=== PATIENT | female | born 1940 | race Caucasian/White ===

== ENCOUNTER 2019-04-21 13:59 | Inpatient (IN) ==
[2019-04-21] MEDS ORDERED: SODIUM CHLORIDE 0.9% 500 ML IV STA (14:44)
[2019-04-21 15:00] LABS: Basophils % 0.4 % (0.0-0.8); Eosinophils # 0.1 10*3/uL (0.0-0.87); Eosinophils % 1.3 % (0.00-10.9); Hematocrit 45.1 VOL% (35.7-47.0); Hemoglobin 13.7 GM/DL (12.0-16.0); Immature Granulocytes % 0.6 %; Immature Granulocytes Absolute 0.05 #; Lymphocytes % 11.8 % (21.3-54.2); Mean Corpuscular HGB Conc 30.4 GM/DL (32-36); Mean Corpuscular Volume 90.4 FL (87-102); Mean Platelet Volume 11.4 FL (9.6-12.0); Monocytes % 6.9 % (1.7-12.7); Platelet Count 182 T/CUMM (130-400); Red Blood Count 4.99 MC/CUMM (3.8-5.5); Red Cell Distribution Width 18.9 % (9.3-17.3); White Blood Count 8.4 T/CUMM (4-12)
[2019-04-21 15:18] LABS: Bilirubin,Total 1.6 MG/DL (0.2-1.0); Calcium 10.7 MG/DL (8.5-10.1); Osmolality,Calculated 277.8 MOS/KG (273-304)
[2019-04-21] MEDS ORDERED: SODIUM CHLORIDE 0.9% 1,000 ML IV STA (15:37)
[2019-04-21] MEDS ORDERED: ASPIRIN CHEW 81 MG TABLET PO STA (15:53)
[2019-04-21 16:23] LABS: Amorphous Crystals,Urine Occasional /HPF (Few); Apearance,Urine Slightly Hazy (Clear); Bacteria,Urine Moderate /HPF (Few); Bilirubin,Urine Negative (Negative); Blood, Urine Negative (Negative); Glucose,Urine (UA) Negative (Negative); Hyaline Casts,Urine 41 /LPF (0-3); Ketones,Urine Negative (Negative); Mucus,Urine Occasional /LPF (Occasional); Nitrite,Urine Positive (Negative); Protein,Urine 30 MG/DL; Squamous Epithelial Cell,Urine Occasional /HPF (0-10); Urine Color Yellow (Yellow); Urine Urobilinogen < 2.0 EU/DL (0.2-1.0); WBC,Urine 2 /HPF (0-6)
[2019-04-21] MEDS ORDERED: ONDANSETRON 4 MG/2 ML VIAL IV PRN (17:17)
[2019-04-21] MEDS ORDERED: MORPHINE 4 MG/1 ML VIAL IV PRN (17:17)
[2019-04-21] MEDS ORDERED: APIXABAN 5 MG TABLET PO SCH (21:00)
[2019-04-21] MEDS ORDERED: CLOPIDOGREL 300 MG TABLET PO ONE (22:28)
[2019-04-21] MEDS: SODIUM CHLORIDE 0.9% 1,000 ML IV SCH (22:44)
[2019-04-21] MEDS: metroNIDAZOLE INJ 500 MG in PREMIX 1 EACH IV SCH (22:51)
[2019-04-22] MEDS: ATORVASTATIN 10 MG TABLET PO SCH ×2 (00:26→23:00)
[2019-04-22] MEDS: SOTALOL 80 MG TABLET PO SCH ×3 (00:26→22:59)
[2019-04-22] MEDS: CEFEPIME 2,000 MG in SODIUM CHLORIDE 0.9% 100 ML IV SCH ×3 (00:40→14:47)
[2019-04-22 01:01] LABS: Basophils % 0.5 % (0.0-0.8); Eosinophils # 0.1 10*3/uL (0.0-0.87); Eosinophils % 1.5 % (0.00-10.9); Hematocrit 41.7 VOL% (35.7-47.0); Immature Granulocytes % 0.3 %; Immature Granulocytes Absolute 0.02 #; Lymphocytes # 1.6 10*3/uL (1.4-4.0); Lymphocytes % 26.8 % (21.3-54.2); Mean Corpuscular HGB Conc 31.2 GM/DL (32-36); Mean Corpuscular Volume 89.1 FL (87-102); Mean Platelet Volume 10.7 FL (9.6-12.0); Monocytes % 12.7 % (1.7-12.7); Neutrophils % 58.2 % (38.7-73.9); Platelet Count 153 T/CUMM (130-400); Red Blood Count 4.68 MC/CUMM (3.8-5.5); Red Cell Distribution Width 18.9 % (9.3-17.3); White Blood Count 5.8 T/CUMM (4-12)
[2019-04-22 01:40] LABS: Albumin 3.5 G/DL (3.4-5.0); Bilirubin,Total 1.1 MG/DL (0.2-1.0); Calcium 9.7 MG/DL (8.5-10.1); Osmolality,Calculated 269.2 MOS/KG (273-304); Thyroid Stimulating Hormone 3.39 uIU/ml (0.358-3.74); Total Protein 6.9 G/DL (6.4-8.3)
[2019-04-22] MEDS: SODIUM CHLORIDE 0.9% 1,000 ML IV SCH (02:41)
[2019-04-22] MEDS: LEVOTHYROXINE 50 MCG TABLET PO SCH (06:17)
[2019-04-22] MEDS: metroNIDAZOLE INJ 500 MG in PREMIX 1 EACH IV SCH ×3 (06:22→23:18)
[2019-04-22] MEDS ORDERED: diphenhydrAMINE CAP 25 MG CAPSULE PO ONE (08:36)
[2019-04-22] MEDS ORDERED: POTASSIUM CHLORIDE RIDER 10 MEQ in PREMIX 1 EACH IV PRN (08:36)
[2019-04-22] MEDS ORDERED: MAGNESIUM SULF RIDER 2 GM in PREMIX 1 EACH IV PRN (08:36)
[2019-04-22] MEDS ORDERED: ENOXAPARIN 80 MG/0.8 ML SYRINGE SUBCUT ONE (08:36)
[2019-04-22] MEDS ORDERED: HEPARIN/NACL 0.9% 2 UNITS/ML 1,000 ML IV ONE (08:42)
[2019-04-22] MEDS ORDERED: LIDOCAINE 1%/EPI INJ 20 ML VIAL ONE (08:42)
[2019-04-22] MEDS ORDERED: CLOPIDOGREL 75 MG TABLET PO SCH (09:00)
[2019-04-22] MEDS ORDERED: ASPIRIN EC 325 MG TABLET PO SCH (09:00)
[2019-04-22] MEDS ORDERED: MIDAZOLAM 2 MG/2 ML VIAL ONE (09:17)
[2019-04-22] MEDS ORDERED: fentaNYL 100 MCG/2 ML VIAL ONE (09:17)
[2019-04-22] MEDS ORDERED: DIAZEPAM 5 MG TABLET PO ONE (09:30)
[2019-04-22] MEDS: PANTOPRAZOLE 40 MG TABLET PO SCH (10:37)
[2019-04-22] MEDS ORDERED: ENOXAPARIN 60 MG/0.6 ML SYRINGE SUBCUT SCH (22:27)
[2019-04-22] MEDS: ENOXAPARIN 60 MG/0.6 ML SYRINGE SUBCUT SCH (23:19)
[2019-04-23] MEDS: CEFEPIME 2,000 MG in SODIUM CHLORIDE 0.9% 100 ML IV SCH ×3 (01:10→13:50)
[2019-04-23 05:29] LABS: Basophils % 0.5 % (0.0-0.8); Eosinophils # 0.2 10*3/uL (0.0-0.87); Eosinophils % 4.7 % (0.00-10.9); Hematocrit 35.3 VOL% (35.7-47.0); Immature Granulocytes % 0.2 %; Immature Granulocytes Absolute 0.01 #; Lymphocytes # 1.1 10*3/uL (1.4-4.0); Lymphocytes % 26.3 % (21.3-54.2); Mean Corpuscular HGB Conc 31.2 GM/DL (32-36); Mean Corpuscular Volume 88.9 FL (87-102); Mean Platelet Volume 10.8 FL (9.6-12.0); Monocytes % 12.3 % (1.7-12.7); Platelet Count 119 T/CUMM (130-400); Red Blood Count 3.97 MC/CUMM (3.8-5.5); Red Cell Distribution Width 18.6 % (9.3-17.3); White Blood Count 4.1 T/CUMM (4-12)
[2019-04-23 06:04] LABS: Albumin 3.1 G/DL (3.4-5.0); Bilirubin,Total 1.1 MG/DL (0.2-1.0); Calcium 9.3 MG/DL (8.5-10.1); Osmolality,Calculated 280.3 MOS/KG (273-304)
[2019-04-23 06:23] LABS: Calcium 9.6 MG/DL (8.5-10.1); Osmolality,Calculated 277.4 MOS/KG (273-304)
[2019-04-23] MEDS: LEVOTHYROXINE 50 MCG TABLET PO SCH (06:30)
[2019-04-23] MEDS: metroNIDAZOLE INJ 500 MG in PREMIX 1 EACH IV SCH ×2 (06:45→13:49)
[2019-04-23] MEDS: SOTALOL 80 MG TABLET PO SCH (08:52)
[2019-04-23] MEDS: PANTOPRAZOLE 40 MG TABLET PO SCH (08:53)
[2019-04-23] MEDS ORDERED: ASPIRIN EC 81 MG TABLET PO SCH (09:00)
[2019-04-23] MEDS: ENOXAPARIN 60 MG/0.6 ML SYRINGE SUBCUT SCH (11:15)
[2019-04-23 15:45] VITALS: BP 129/73
== END 2019-04-23 17:00 | disposition home or self-care (01) | DRG 287 ==
LOC: N.ED 13:59 → N.EDINP 17:17 → N.TELEN 20:42
PROVIDERS: ADMIT Family Medicine; ATTEND Family Medicine
PROC: CLCCHCL (ICD-10-PCS; 2019-04-22 10:45)

== ENCOUNTER 2022-03-05 19:21 | Inpatient (IN) ==
[2022-03-05] MEDS ORDERED: ONDANSETRON 4 MG/2 ML VIAL IV STA (21:19)
[2022-03-05] MEDS ORDERED: SODIUM CHLORIDE 0.9% 1,000 ML IV STA (21:19)
[2022-03-05 22:03] LABS: Basophils % 0.2 % (0.0-0.8); Eosinophils # 0.1 10*3/uL (0.0-0.87); Hematocrit 42.6 VOL% (35.7-47.0); Hemoglobin 13.7 GM/DL (12.0-16.0); Immature Granulocytes % 0.5 %; Immature Granulocytes Absolute 0.05 #; Lymphocytes % 9.7 % (21.3-54.2); Mean Corpuscular HGB Conc 32.2 GM/DL (32-36); Mean Corpuscular Volume 87.8 FL (87-102); Mean Platelet Volume 11.3 FL (9.6-12.0); Monocytes # 1.6 10*3/uL (0.11-0.8); Monocytes % 14.8 % (1.7-12.7); Neutrophils % 73.8 % (38.7-73.9); Platelet Count 201 T/CUMM (130-400); Red Blood Count 4.85 MC/CUMM (3.8-5.5); Red Cell Distribution Width 17.7 % (9.3-17.3); White Blood Count 10.5 T/CUMM (4-12)
[2022-03-05 22:28] LABS: Hypochromia 1+
[2022-03-05 22:29] LABS: Elliptocytes Few; Platelet Estimate Adequate
[2022-03-05 22:31] LABS: Albumin 4.1 G/DL (3.4-5.0); Bilirubin,Total 2.1 MG/DL (0.20-1.00); Calcium 6.5 MG/DL (8.5-10.1); Osmolality,Calculated 261.5 MOS/KG (273-304); Potassium 3.9 MMOL/L (3.5-5.1); Total Protein 7.3 G/DL (6.4-8.2)
[2022-03-05] MEDS ORDERED: FUROSEMIDE 40 MG/4 ML VIAL IV STA (22:50)
[2022-03-05] MEDS ORDERED: MAGNESIUM SULF RIDER 2 GM/50 ML PREMIX IV STA (22:50)
[2022-03-05] MEDS ORDERED: ACETAMINOPHEN 325 MG TABLET PO PRN (22:54)
[2022-03-05] MEDS ORDERED: ONDANSETRON 4 MG/2 ML VIAL IV PRN (22:54)
[2022-03-05] MEDS ORDERED: MAGNESIUM SULF RIDER 4 GM/100 ML PREMIX IV PRN (23:01)
[2022-03-05] MEDS ORDERED: POTASSIUM CHLORIDE 20 MEQ TABLET PO PRN (23:01)
[2022-03-05] MEDS ORDERED: MAGNESIUM SULF RIDER 2 GM/50 ML PREMIX IV PRN (23:01)
[2022-03-05 23:53] LABS: Glucose,Urine (UA) Negative (Negative); Ketones,Urine Negative (Negative); Nitrite,Urine Negative (Negative); Protein,Urine Negative (Negative); Squamous Epithelial Cell,Urine Occasional /HPF (0-10); Urine Appearance Clear (Clear); Urine Color Yellow (Yellow); Urine pH 6.5 (4.5-8.0)
[2022-03-05 23:54] LABS: Bilirubin,Urine Negative (Negative); Blood, Urine Moderate mg/dL (Negative); Urine Urobilinogen 0.2 eU/dL (<2.0)
[2022-03-06] MEDS ORDERED: NON-FORMULARY MEDICATION (Dimethicone-Znox-Vit A-D-Aloe [Zinc Oxide Diaper Cream] 1-10 % C TOP PRN (00:22)
[2022-03-06] MEDS ORDERED: HYDROCORTISONE 0.5% TOP PRN (00:22)
[2022-03-06] MEDS ORDERED: BISACODYL 5 MG TABLET PO PRN (00:22)
[2022-03-06] MEDS ORDERED: POLYETHYLENE GLYCOL POWDER 17 GM PACK PO PRN (00:28)
[2022-03-06] MEDS ORDERED: CLORAZEPATE 3.75 MG TABLET PO PRN (03:55)
[2022-03-06] MEDS: LEVOTHYROXINE 75 MCG TABLET PO SCH (06:03)
[2022-03-06 07:14] LABS: Basophils % 0.1 % (0.0-0.8); Eosinophils # 0.1 10*3/uL (0.0-0.87); Eosinophils % 1.3 % (0.00-10.9); Hematocrit 37.3 VOL% (35.7-47.0); Hemoglobin 12.2 GM/DL (12.0-16.0); Immature Granulocytes % 0.5 %; Immature Granulocytes Absolute 0.04 #; Lymphocytes # 0.8 10*3/uL (1.4-4.0); Lymphocytes % 9.5 % (21.3-54.2); Mean Corpuscular HGB Conc 32.7 GM/DL (32-36); Mean Corpuscular Volume 85.7 FL (87-102); Mean Platelet Volume 10.2 FL (9.6-12.0); Monocytes # 1.4 10*3/uL (0.11-0.8); Monocytes % 15.7 % (1.7-12.7); Neutrophils % 72.9 % (38.7-73.9); Platelet Count 160 T/CUMM (130-400); Red Blood Count 4.35 MC/CUMM (3.8-5.5); Red Cell Distribution Width 17.5 % (9.3-17.3); White Blood Count 8.8 T/CUMM (4-12)
[2022-03-06 07:32] LABS: Albumin 3.2 G/DL (3.4-5.0); Bilirubin,Total 1.8 MG/DL (0.20-1.00); Osmolality,Calculated 271.7 MOS/KG (273-304); Potassium 3.5 MMOL/L (3.5-5.1); Risk Ratio 2.98; Total Protein 5.8 G/DL (6.4-8.2); VLDL Cholesterol 17.2 MG/DL
[2022-03-06 07:34] LABS: Eosinophils 1 % (0-10); Hypochromia Slight; Lymphocytes 11 % (20-55); Microcytosis Slight; Platelet Estimate Adequate; Total Cells Counted 100
[2022-03-06 07:36] LABS: Calcium 5.6 MG/DL (8.5-10.1)
[2022-03-06] MEDS ORDERED: CALCIUM GLUCONATE RIDER 2,000 MG/100 ML PREMIX IV ONE ×2 (07:41→12:00)
[2022-03-06] MEDS ORDERED: CALCIUM GLUCONATE RIDER 2,000 MG/100 ML PREMIX IV STA (07:49)
[2022-03-06] MEDS ORDERED: FUROSEMIDE 20 MG/2 ML VIAL IV SCH (08:00)
[2022-03-06] MEDS: CALCIUM CARBONATE CHEW 500 MG TABLET PO SCH ×2 (08:29→20:55)
[2022-03-06] MEDS: CHOLECALCIFEROL 5,000 UNIT TABLET PO SCH (08:30)
[2022-03-06] MEDS: MULTIVITAMIN (OCUVITE) TABLET PO SCH (08:30)
[2022-03-06] MEDS: APIXABAN 5 MG TABLET PO SCH ×2 (08:30→20:55)
[2022-03-06] MEDS: CYANOCOBALAMIN 500 MCG TABLET PO SCH (08:30)
[2022-03-06] MEDS: SOTALOL 80 MG TABLET PO SCH ×2 (08:31→20:55)
[2022-03-06] MEDS: TRIAMCINOLONE 0.1% CREAM 15 GM TUBE TOP SCH ×2 (08:32→22:19)
[2022-03-06] MEDS: KETOCONAZOLE 2% CREAM 30 GM TUBE TOP SCH ×2 (08:32→22:20)
[2022-03-06] MEDS: FLUTICASONE 50 MCG NASAL SPRAY 16 GM BOTTLE BOTH NARES SCH (08:32)
[2022-03-06] MEDS ORDERED: DILTIAZEM CD 120 MG CAPSULE PO SCH (09:00)
[2022-03-06 11:13] LABS: Calcium 6.3 MG/DL (8.5-10.1); Osmolality,Calculated 267.1 MOS/KG (273-304); Potassium 3.5 MMOL/L (3.5-5.1)
[2022-03-06] MEDS ORDERED: POTASSIUM CHLORIDE 20 MEQ TABLET PO ONE ×2 (11:49→17:01)
[2022-03-06] MEDS ORDERED: MAGNESIUM SULF RIDER 2 GM/50 ML PREMIX IV ONE ×2 (12:30→13:00)
[2022-03-06 13:28] LABS: Osmolality,Calculated 264.5 MOS/KG (273-304); Potassium 3.5 MMOL/L (3.5-5.1)
[2022-03-06] MEDS: FUROSEMIDE 40 MG/4 ML VIAL IV SCH (15:37)
[2022-03-06 18:18] LABS: Calcium 6.5 MG/DL (8.5-10.1); Osmolality,Calculated 262.5 MOS/KG (273-304); Potassium 4.1 MMOL/L (3.5-5.1)
[2022-03-06] MEDS: ATORVASTATIN 10 MG TABLET PO SCH (20:55)
[2022-03-06] MEDS: ASCORBIC ACID 500 MG TABLET PO SCH (20:55)
[2022-03-06] MEDS: MAGNESIUM OXIDE 400 MG TABLET PO SCH (20:56)
[2022-03-07 04:52] LABS: Basophils % 0.1 % (0.0-0.8); Eosinophils # 0.1 10*3/uL (0.0-0.87); Eosinophils % 1.4 % (0.00-10.9); Hemoglobin 12.5 GM/DL (12.0-16.0); Immature Granulocytes % 0.5 %; Immature Granulocytes Absolute 0.05 #; Mean Corpuscular HGB Conc 32.9 GM/DL (32-36); Mean Corpuscular Volume 85.4 FL (87-102); Mean Platelet Volume 10.9 FL (9.6-12.0); Monocytes # 1.8 10*3/uL (0.11-0.8); Platelet Count 182 T/CUMM (130-400); Red Blood Count 4.45 MC/CUMM (3.8-5.5); Red Cell Distribution Width 17.7 % (9.3-17.3); White Blood Count 9.9 T/CUMM (4-12)
[2022-03-07 05:16] LABS: Eosinophils 1 % (0-10); Lymphocytes 7 % (20-55); Total Cells Counted 100
[2022-03-07 05:17] LABS: Hypochromia Slight; Microcytosis Slight; Platelet Estimate Adequate
[2022-03-07 05:21] LABS: Calcium 6.2 MG/DL (8.5-10.1); Osmolality,Calculated 266.2 MOS/KG (273-304); Potassium 4.1 MMOL/L (3.5-5.1)
[2022-03-07] MEDS: LEVOTHYROXINE 75 MCG TABLET PO SCH (05:30)
[2022-03-07] MEDS: SOTALOL 80 MG TABLET PO SCH ×2 (08:38→21:31)
[2022-03-07] MEDS: MAGNESIUM OXIDE 400 MG TABLET PO SCH ×3 (08:39→21:43)
[2022-03-07] MEDS: DILTIAZEM CD 120 MG CAPSULE PO SCH (08:39)
[2022-03-07] MEDS: MULTIVITAMIN (OCUVITE) TABLET PO SCH (08:39)
[2022-03-07] MEDS: CALCIUM CARBONATE CHEW 500 MG TABLET PO SCH ×2 (08:39→21:31)
[2022-03-07] MEDS: ASCORBIC ACID 500 MG TABLET PO SCH ×2 (08:39→21:31)
[2022-03-07] MEDS: APIXABAN 5 MG TABLET PO SCH ×2 (08:40→21:31)
[2022-03-07] MEDS: CHOLECALCIFEROL 5,000 UNIT TABLET PO SCH (08:40)
[2022-03-07] MEDS: CYANOCOBALAMIN 500 MCG TABLET PO SCH (08:40)
[2022-03-07] MEDS: FUROSEMIDE 40 MG/4 ML VIAL IV SCH ×2 (09:01→18:12)
[2022-03-07 10:52] LABS: Albumin 3.7 G/DL (3.4-5.0); Bilirubin,Total 2.1 MG/DL (0.20-1.00); Calcium 6.2 MG/DL (8.5-10.1); Osmolality,Calculated 261.7 MOS/KG (273-304); Potassium 4.7 MMOL/L (3.5-5.1); Total Protein 6.7 G/DL (6.4-8.2)
[2022-03-07] MEDS: FLUTICASONE 50 MCG NASAL SPRAY 16 GM BOTTLE BOTH NARES SCH (11:29)
[2022-03-07] MEDS: KETOCONAZOLE 2% CREAM 30 GM TUBE TOP SCH ×3 (11:29→21:43)
[2022-03-07] MEDS: TRIAMCINOLONE 0.1% CREAM 15 GM TUBE TOP SCH ×3 (11:29→21:43)
[2022-03-07] MEDS ORDERED: CALCIUM GLUCONATE RIDER 2,000 MG/100 ML PREMIX IV ONE (20:04)
[2022-03-07] MEDS: DOCUSATE SODIUM 100 MG CAPSULE PO SCH (21:30)
[2022-03-07] MEDS: ATORVASTATIN 10 MG TABLET PO SCH (21:32)
[2022-03-08 05:44] LABS: Basophils % 0.2 % (0.0-0.8); Eosinophils # 0.2 10*3/uL (0.0-0.87); Eosinophils % 2.3 % (0.00-10.9); Hematocrit 39.3 VOL% (35.7-47.0); Immature Granulocytes % 0.5 %; Immature Granulocytes Absolute 0.04 #; Lymphocytes # 1.4 10*3/uL (1.4-4.0); Lymphocytes % 16.1 % (21.3-54.2); Mean Corpuscular HGB Conc 33.1 GM/DL (32-36); Mean Corpuscular Volume 86.4 FL (87-102); Mean Platelet Volume 10.7 FL (9.6-12.0); Monocytes # 1.6 10*3/uL (0.11-0.8); Monocytes % 19.4 % (1.7-12.7); Neutrophils % 61.5 % (38.7-73.9); Platelet Count 158 T/CUMM (130-400); Red Blood Count 4.55 MC/CUMM (3.8-5.5); Red Cell Distribution Width 17.4 % (9.3-17.3); White Blood Count 8.4 T/CUMM (4-12)
[2022-03-08] MEDS: LEVOTHYROXINE 75 MCG TABLET PO SCH (05:51)
[2022-03-08 06:15] LABS: Band Neutrophils 1 % (0-10); Eosinophils 1 % (0-10); Lymphocytes 13 % (20-55); Microcytosis Slight; Total Cells Counted 100
[2022-03-08 06:16] LABS: Ovalocytes Slight; Platelet Estimate Adequate
[2022-03-08 06:23] LABS: Calcium 6.5 MG/DL (8.5-10.1); Osmolality,Calculated 264.5 MOS/KG (273-304); Potassium 3.7 MMOL/L (3.5-5.1)
[2022-03-08 07:46] LABS: Albumin 2.8 G/DL (3.4-5.0); Bilirubin,Direct 0.4 MG/DL (0.0-0.20); Bilirubin,Indirect 1.2 MG/DL (0.0-1.0); Bilirubin,Total 1.6 MG/DL (0.20-1.00); Total Protein 6.3 G/DL (6.4-8.2)
[2022-03-08] MEDS ORDERED: POTASSIUM CHLORIDE 20 MEQ TABLET PO ONE (07:46)
[2022-03-08] MEDS: MULTIVITAMIN (OCUVITE) TABLET PO SCH (08:41)
[2022-03-08] MEDS: APIXABAN 5 MG TABLET PO SCH ×2 (08:42→21:00)
[2022-03-08] MEDS: MAGNESIUM OXIDE 400 MG TABLET PO SCH ×2 (08:42→20:59)
[2022-03-08] MEDS: CHOLECALCIFEROL 5,000 UNIT TABLET PO SCH (08:42)
[2022-03-08] MEDS: CYANOCOBALAMIN 500 MCG TABLET PO SCH (08:42)
[2022-03-08] MEDS: ASCORBIC ACID 500 MG TABLET PO SCH ×2 (08:42→20:59)
[2022-03-08] MEDS: DOCUSATE SODIUM 100 MG CAPSULE PO SCH ×2 (08:42→20:59)
[2022-03-08] MEDS: TRIAMCINOLONE 0.1% CREAM 15 GM TUBE TOP SCH ×2 (08:43→21:00)
[2022-03-08] MEDS: FLUTICASONE 50 MCG NASAL SPRAY 16 GM BOTTLE BOTH NARES SCH (08:43)
[2022-03-08] MEDS ORDERED: CALCIUM GLUCONATE RIDER 2,000 MG/100 ML PREMIX IV ONE (09:00)
[2022-03-08] MEDS: FUROSEMIDE 40 MG/4 ML VIAL IV SCH (09:36)
[2022-03-08] MEDS: CALCIUM CARBONATE CHEW 500 MG TABLET PO SCH ×2 (09:49→20:59)
[2022-03-08] MEDS: FUROSEMIDE 40 MG TABLET PO SCH (09:49)
[2022-03-08] MEDS: DILTIAZEM CD 120 MG CAPSULE PO SCH (09:49)
[2022-03-08] MEDS: POLYETHYLENE GLYCOL POWDER 17 GM PACK PO SCH (12:51)
[2022-03-08 17:51] LABS: Calcium 6.9 MG/DL (8.5-10.1); Osmolality,Calculated 257.9 MOS/KG (273-304); Potassium 4.2 MMOL/L (3.5-5.1)
[2022-03-08] MEDS: KETOCONAZOLE 2% CREAM 30 GM TUBE TOP SCH ×2 (18:10→21:00)
[2022-03-08] MEDS: ATORVASTATIN 10 MG TABLET PO SCH (20:59)
[2022-03-09 04:41] LABS: Basophils % 0.2 % (0.0-0.8); Eosinophils # 0.2 10*3/uL (0.0-0.87); Eosinophils % 1.9 % (0.00-10.9); Hematocrit 38.9 VOL% (35.7-47.0); Hemoglobin 12.7 GM/DL (12.0-16.0); Immature Granulocytes % 0.5 %; Immature Granulocytes Absolute 0.05 #; Lymphocytes % 10.4 % (21.3-54.2); Mean Corpuscular HGB Conc 32.6 GM/DL (32-36); Mean Corpuscular Volume 85.7 FL (87-102); Mean Platelet Volume 11.4 FL (9.6-12.0); Monocytes # 1.3 10*3/uL (0.11-0.8); Monocytes % 13.4 % (1.7-12.7); Neutrophils % 73.6 % (38.7-73.9); Platelet Count 217 T/CUMM (130-400); Red Blood Count 4.54 MC/CUMM (3.8-5.5); Red Cell Distribution Width 16.9 % (9.3-17.3); White Blood Count 9.8 T/CUMM (4-12)
[2022-03-09 05:02] LABS: Calcium 6.9 MG/DL (8.5-10.1); Osmolality,Calculated 265.5 MOS/KG (273-304); Potassium 4.9 MMOL/L (3.5-5.1)
[2022-03-09] MEDS: LEVOTHYROXINE 75 MCG TABLET PO SCH (06:25)
[2022-03-09 08:33] LABS: Bilirubin,Direct 0.34 MG/DL (0.0-0.20); Bilirubin,Indirect 0.7 MG/DL (0.0-1.0); Total Protein 6.4 G/DL (6.4-8.2)
[2022-03-09] MEDS: POLYETHYLENE GLYCOL POWDER 17 GM PACK PO SCH (08:46)
[2022-03-09] MEDS: CALCIUM CARBONATE CHEW 500 MG TABLET PO SCH ×2 (08:46→21:17)
[2022-03-09] MEDS: APIXABAN 5 MG TABLET PO SCH ×2 (08:47→21:16)
[2022-03-09] MEDS: ASCORBIC ACID 500 MG TABLET PO SCH ×2 (08:47→21:17)
[2022-03-09] MEDS: DOCUSATE SODIUM 100 MG CAPSULE PO SCH ×2 (08:47→21:15)
[2022-03-09] MEDS: FUROSEMIDE 40 MG TABLET PO SCH (08:47)
[2022-03-09] MEDS: CHOLECALCIFEROL 5,000 UNIT TABLET PO SCH (08:47)
[2022-03-09] MEDS: MULTIVITAMIN (OCUVITE) TABLET PO SCH (08:47)
[2022-03-09] MEDS: FLUTICASONE 50 MCG NASAL SPRAY 16 GM BOTTLE BOTH NARES SCH (08:48)
[2022-03-09] MEDS: KETOCONAZOLE 2% CREAM 30 GM TUBE TOP SCH ×2 (08:48→21:18)
[2022-03-09] MEDS: CYANOCOBALAMIN 500 MCG TABLET PO SCH (08:48)
[2022-03-09] MEDS: MAGNESIUM OXIDE 400 MG TABLET PO SCH ×2 (08:48→21:15)
[2022-03-09] MEDS: DILTIAZEM CD 120 MG CAPSULE PO SCH (08:49)
[2022-03-09] MEDS: TRIAMCINOLONE 0.1% CREAM 15 GM TUBE TOP SCH ×2 (08:49→21:18)
[2022-03-09] MEDS ORDERED: LACTULOSE 20 GM/30 ML UDCUP PO ONE (09:23)
[2022-03-09] MEDS: METOPROLOL TARTRATE 25 MG TABLET PO SCH ×2 (10:26→21:15)
[2022-03-09] MEDS ORDERED: CALCIUM GLUCONATE RIDER 2,000 MG/100 ML PREMIX IV ONE (17:02)
[2022-03-09] MEDS: ATORVASTATIN 10 MG TABLET PO SCH (21:17)
[2022-03-10 04:42] LABS: Basophils % 0.1 % (0.0-0.8); Eosinophils # 0.1 10*3/uL (0.0-0.87); Hematocrit 37.7 VOL% (35.7-47.0); Hemoglobin 12.1 GM/DL (12.0-16.0); Immature Granulocytes % 0.6 %; Immature Granulocytes Absolute 0.04 #; Lymphocytes # 0.8 10*3/uL (1.4-4.0); Lymphocytes % 11.1 % (21.3-54.2); Mean Corpuscular HGB Conc 32.1 GM/DL (32-36); Mean Corpuscular Volume 86.9 FL (87-102); Mean Platelet Volume 10.7 FL (9.6-12.0); Monocytes % 14.3 % (1.7-12.7); Neutrophils % 71.9 % (38.7-73.9); Platelet Count 231 T/CUMM (130-400); Red Blood Count 4.34 MC/CUMM (3.8-5.5); Red Cell Distribution Width 16.9 % (9.3-17.3); White Blood Count 6.8 T/CUMM (4-12)
[2022-03-10 05:03] LABS: Calcium 7.8 MG/DL (8.5-10.1); Osmolality,Calculated 261.5 MOS/KG (273-304); Potassium 4.2 MMOL/L (3.5-5.1)
[2022-03-10] MEDS: LEVOTHYROXINE 75 MCG TABLET PO SCH (05:39)
[2022-03-10] MEDS: SOTALOL 80 MG TABLET PO SCH ×2 (09:53→21:33)
[2022-03-10] MEDS: DOCUSATE SODIUM 100 MG CAPSULE PO SCH ×2 (09:53→22:57)
[2022-03-10] MEDS: TRIAMCINOLONE 0.1% CREAM 15 GM TUBE TOP SCH ×2 (09:54→23:01)
[2022-03-10] MEDS: FUROSEMIDE 40 MG TABLET PO SCH (09:54)
[2022-03-10] MEDS: APIXABAN 5 MG TABLET PO SCH ×2 (09:54→22:56)
[2022-03-10] MEDS: METOPROLOL TARTRATE 25 MG TABLET PO SCH ×2 (09:54→21:34)
[2022-03-10] MEDS: FLUTICASONE 50 MCG NASAL SPRAY 16 GM BOTTLE BOTH NARES SCH (09:54)
[2022-03-10] MEDS: POLYETHYLENE GLYCOL POWDER 17 GM PACK PO SCH (09:55)
[2022-03-10] MEDS: MULTIVITAMIN (OCUVITE) TABLET PO SCH (09:55)
[2022-03-10] MEDS: KETOCONAZOLE 2% CREAM 30 GM TUBE TOP SCH ×2 (09:55→23:01)
[2022-03-10] MEDS: CALCIUM CARBONATE CHEW 500 MG TABLET PO SCH ×2 (09:55→22:57)
[2022-03-10] MEDS: MAGNESIUM OXIDE 400 MG TABLET PO SCH ×2 (09:55→22:56)
[2022-03-10] MEDS: ASCORBIC ACID 500 MG TABLET PO SCH ×2 (09:56→22:56)
[2022-03-10] MEDS: CHOLECALCIFEROL 5,000 UNIT TABLET PO SCH (09:56)
[2022-03-10] MEDS: CYANOCOBALAMIN 500 MCG TABLET PO SCH (09:57)
[2022-03-10] MEDS: ATORVASTATIN 10 MG TABLET PO SCH (22:56)
[2022-03-11] MEDS ORDERED: DIGOXIN 0.5 MG/2 ML AMP IV ONE (00:16)
[2022-03-11 04:30] LABS: Basophils % 0.3 % (0.0-0.8); Eosinophils # 0.1 10*3/uL (0.0-0.87); Eosinophils % 2.1 % (0.00-10.9); Hematocrit 36.7 VOL% (35.7-47.0); Hemoglobin 11.8 GM/DL (12.0-16.0); Immature Granulocytes % 0.5 %; Immature Granulocytes Absolute 0.03 #; Lymphocytes # 1.1 10*3/uL (1.4-4.0); Lymphocytes % 17.4 % (21.3-54.2); Mean Corpuscular HGB Conc 32.2 GM/DL (32-36); Mean Corpuscular Volume 86.6 FL (87-102); Mean Platelet Volume 10.4 FL (9.6-12.0); Monocytes # 0.8 10*3/uL (0.11-0.8); Monocytes % 13.3 % (1.7-12.7); Neutrophils % 66.4 % (38.7-73.9); Platelet Count 235 T/CUMM (130-400); Red Blood Count 4.24 MC/CUMM (3.8-5.5); Red Cell Distribution Width 16.9 % (9.3-17.3); White Blood Count 6.3 T/CUMM (4-12)
[2022-03-11 04:43] LABS: Calcium 7.4 MG/DL (8.5-10.1); Osmolality,Calculated 265.4 MOS/KG (273-304); Potassium 4.1 MMOL/L (3.5-5.1)
[2022-03-11] MEDS: LEVOTHYROXINE 75 MCG TABLET PO SCH (05:48)
[2022-03-11] MEDS: SOTALOL 80 MG TABLET PO SCH ×2 (08:54→21:39)
[2022-03-11] MEDS: POLYETHYLENE GLYCOL POWDER 17 GM PACK PO SCH (08:54)
[2022-03-11] MEDS: CYANOCOBALAMIN 500 MCG TABLET PO SCH (08:55)
[2022-03-11] MEDS: FUROSEMIDE 40 MG TABLET PO SCH (08:55)
[2022-03-11] MEDS: METOPROLOL TARTRATE 25 MG TABLET PO SCH ×2 (08:55→21:38)
[2022-03-11] MEDS: ASCORBIC ACID 500 MG TABLET PO SCH ×2 (08:55→21:39)
[2022-03-11] MEDS: DOCUSATE SODIUM 100 MG CAPSULE PO SCH ×2 (08:55→21:38)
[2022-03-11] MEDS: APIXABAN 5 MG TABLET PO SCH ×2 (08:55→21:37)
[2022-03-11] MEDS: MULTIVITAMIN (OCUVITE) TABLET PO SCH (08:55)
[2022-03-11] MEDS: MAGNESIUM OXIDE 400 MG TABLET PO SCH ×2 (08:55→21:39)
[2022-03-11] MEDS: CHOLECALCIFEROL 5,000 UNIT TABLET PO SCH (08:55)
[2022-03-11] MEDS: CALCIUM CARBONATE CHEW 500 MG TABLET PO SCH ×2 (08:56→21:38)
[2022-03-11] MEDS: FLUTICASONE 50 MCG NASAL SPRAY 16 GM BOTTLE BOTH NARES SCH (09:40)
[2022-03-11] MEDS: TRIAMCINOLONE 0.1% CREAM 15 GM TUBE TOP SCH ×2 (09:40→22:58)
[2022-03-11] MEDS: KETOCONAZOLE 2% CREAM 30 GM TUBE TOP SCH ×2 (09:41→22:58)
[2022-03-11] MEDS ORDERED: METOPROLOL TARTRATE 25 MG TABLET PO ONE (11:43)
[2022-03-11] MEDS: ATORVASTATIN 10 MG TABLET PO SCH (21:37)
[2022-03-12] MEDS: LEVOTHYROXINE 75 MCG TABLET PO SCH (05:45)
[2022-03-12 05:47] LABS: Basophils % 0.2 % (0.0-0.8); Eosinophils # 0.1 10*3/uL (0.0-0.87); Eosinophils % 1.5 % (0.00-10.9); Hematocrit 37.2 VOL% (35.7-47.0); Immature Granulocytes % 0.6 %; Immature Granulocytes Absolute 0.03 #; Lymphocytes # 0.8 10*3/uL (1.4-4.0); Lymphocytes % 15.2 % (21.3-54.2); Mean Corpuscular HGB Conc 32.3 GM/DL (32-36); Mean Corpuscular Volume 87.3 FL (87-102); Mean Platelet Volume 10.1 FL (9.6-12.0); Monocytes # 0.7 10*3/uL (0.11-0.8); Monocytes % 13.9 % (1.7-12.7); Neutrophils % 68.6 % (38.7-73.9); Platelet Count 240 T/CUMM (130-400); Red Blood Count 4.26 MC/CUMM (3.8-5.5); Red Cell Distribution Width 16.6 % (9.3-17.3); White Blood Count 5.3 T/CUMM (4-12)
[2022-03-12 06:07] LABS: Osmolality,Calculated 270.1 MOS/KG (273-304); Potassium 4.5 MMOL/L (3.5-5.1)
[2022-03-12 06:12] LABS: Anisocytosis 1+; Ovalocytes Few; Platelet Estimate Normal
[2022-03-12 08:02] VITALS: BP 103/65
[2022-03-12] MEDS: TRIAMCINOLONE 0.1% CREAM 15 GM TUBE TOP SCH (09:44)
[2022-03-12] MEDS: FUROSEMIDE 40 MG TABLET PO SCH (09:44)
[2022-03-12] MEDS: APIXABAN 5 MG TABLET PO SCH (09:44)
[2022-03-12] MEDS: DOCUSATE SODIUM 100 MG CAPSULE PO SCH (09:44)
[2022-03-12] MEDS: SOTALOL 80 MG TABLET PO SCH (09:44)
[2022-03-12] MEDS: FLUTICASONE 50 MCG NASAL SPRAY 16 GM BOTTLE BOTH NARES SCH (09:44)
[2022-03-12] MEDS: CHOLECALCIFEROL 5,000 UNIT TABLET PO SCH (09:45)
[2022-03-12] MEDS: POLYETHYLENE GLYCOL POWDER 17 GM PACK PO SCH (09:45)
[2022-03-12] MEDS: CYANOCOBALAMIN 500 MCG TABLET PO SCH (09:45)
[2022-03-12] MEDS: ASCORBIC ACID 500 MG TABLET PO SCH (09:45)
[2022-03-12] MEDS: MAGNESIUM OXIDE 400 MG TABLET PO SCH (09:45)
[2022-03-12] MEDS: MULTIVITAMIN (OCUVITE) TABLET PO SCH (09:45)
[2022-03-12] MEDS: METOPROLOL TARTRATE 25 MG TABLET PO SCH (09:45)
[2022-03-12] MEDS: KETOCONAZOLE 2% CREAM 30 GM TUBE TOP SCH (09:45)
[2022-03-12] MEDS: CALCIUM CARBONATE CHEW 500 MG TABLET PO SCH (09:45)
== END 2022-03-12 12:25 | disposition home health service (06) | DRG 291 ==
LOC: N.ED 19:21 → N.2W 19:21 → SUATTDRO 03-06 07:43 → N.TELES 03-06 16:51
PROVIDERS: ADMIT Internal Medicine; ATTEND Internal Medicine